=== PATIENT | male | born 1970 | race Caucasian/White ===

== ENCOUNTER 2025-07-10 15:12 | Emergency (ER) | payer OTHER ==
[~2025-07-10] VITALS: Ht 177.8 cm; Wt 119.7 kg
[2025-07-10] MEDS: ASPIRIN 81 MG TAB.CHEW PO ONE (15:30)
[2025-07-10] MEDS ORDERED: ASPIRIN 81 MG TAB.CHEW ONE (15:47)
[2025-07-10 15:48] LABS: PLATELET COUNT (AUTO) 196 K/uL (150-450); RED BLOOD CELL COUNT(AUTO) 4.87 MIL/uL (4.5-6.0); RED CELL DISTRIBUTION WIDTH 13.6 % (11.5-15.0); WHITE BLOOD COUNT (AUTO) 6.9 K/uL (4.3-11.0)
[2025-07-10 15:54] LABS: CALCIUM, SERUM 8.6 mg/dL (8.5-10.1); CREATININE 1.0 mg/dL (0.6-1.3); SODIUM SERUM 142 mmol/L (136-145); UREA NITROGEN, BLOOD 18 mg/dL (7-18)
[2025-07-10 18:00] VITALS: BP 113/67; TEMP 97.8; O2SAT 97
[2025-07-10] MEDS ORDERED: KETOROLAC TROMETHAMINE INJ 30 MG/ML VIAL IM ONE (18:00)
== END 2025-07-10 18:00 | disposition home or self-care (01) ==
LOC: ER 15:12
DX: R07.89 Other chest pain (principal)
CPT/HCPCS: 36415; 71045-TC; 80048-TC; 84484-TC; 85025-TC